=== PATIENT | male | born 1955 | race Caucasian/White ===

== ENCOUNTER 2023-02-02 16:40 | Emergency (ER) | payer SELFPAY ==
[2023-02-02 16:44] VITALS: BMI 35.7
[2023-02-02 16:47] VITALS: BP 172/98; PULSE 63; RESP 16; TEMP 36.6; O2SAT 98
--- NOTE | 2023-02-02 16:48 | CTR_ITS ---
PROCEDURE INFORMATION: Exam: CT Abdomen And Pelvis With Contrast Exam date and time: 02/02/2023 7:15 PM Age: 67 years old Clinical indication: Abdominal pain; Localized; Right lower quadrant (rlq); Additional info: Abd pain TECHNIQUE: Imaging protocol: Computed tomography of the abdomen and pelvis with contrast. Radiation optimization: All CT scans at this facility use at least one of these dose optimization techniques: automated exposure control; mA and/or kV adjustment per patient size (includes targeted exams where dose is matched to clinical indication); or iterative reconstruction. Contrast material: OMNI 350; Contrast volume: 100 ml; Contrast route: INTRAVENOUS (IV); REPORTING DATA: Count of CT and Cardiac NM exams in prior 12 months: This patient has received 0 known CTs and 0 known cardiac nuclear medicine studies in the 12 months prior to the current study. COMPARISON: No relevant prior studies available. RADIATION DOSE METRICS: Total DLP (mGy-cm): 890 FINDINGS: Lungs: Mild areas of bibasilar atelectasis or scarring. Heart: Heart is mildly enlarged. Diaphragm: Very small hiatal hernia. Liver: Few hepatic cystic foci measure up to 1.5 cm. Liver is large and steatotic. Gallbladder and bile ducts: No calcified gallstones or biliary dilation identified. Pancreas: Unremarkable with no suspicious mass. No ductal dilation. Spleen: The spleen is not enlarged. No suspicious enhancing mass is noted. Adrenal glands: Normal. No mass. Kidneys and ureters: Few small left renal cysts. At least mild right hydronephrosis and hydroureter. The right distal ureter contains a 5-6 mm calculus causing this obstruction. Other minute bilateral renal cysts are likely. Question minimal left nephrolithiasis. Stomach and bowel: Mild sigmoid diverticulosis. No small bowel obstruction, abscess or free air. The colon is rather fecal filled. Appendix: Normal appendix. Intraperitoneal space: Unremarkable. No free air. No suspicious fluid collection. Vasculature: No AAA or acute vascular lesion identified. Lymph nodes: No enlarged lymph nodes. Urinary bladder: There is moderate bladder distention. Reproductive: The prostate is quite large. Bones/joints: Advanced spine DJD. Moderate lower lumbar degenerative change. L4 probable hemangioma. Soft tissues: No acute or suspicious finding noted. CT/CT abdomen pelvis w con* [id number] IMPRESSION: 1. Right distal ureteral 6 mm calculus causes [id number] obstruction. 2. Numerous other chronic findings above with large and steatotic liver, large prostate, large bladder, etc. 3. No small bowel obstruction, abscess or free air. COMMENTS: Consistent with the [employer]'s Incidental Findings Committee white paper (J Am Feng [employer]iol 2018): Any incidental renal lesion less than 1 cm or classified as too small to characterize, or any incidental cystic renal lesion characterized as simple-appearing, is likely benign. No follow-up imaging is recommended for these lesions per consensus recommendations based on imaging criteria.
--- NOTE | 2023-02-02 16:59 | ED_ITS ---
HPI - Abdominal Pain 2 General: Chief Complaint: Abdominal Pain Stated Complaint: Abd pain Time Seen by Provider: 02/02/23 16:44 Source: patient and EMS Mode of arrival: EMS Limitations: no limitations History of Present Illness: 67-year-old male states that over the st 3 days has been having right-sided abdominal pain he states that its much worse pain is currently 5 out of 10 is worse with movement improved with rest he had some constipation denies any vomiting or diarrhea denies any fevers. Associated Symptoms: Denies chills, diarrhea, dysuria, fever(s), nausea and vomiting Review of Systems 2 Const: Denies: fever(s) or chills ENMT: Denies: throat pain or dental pain Card: Denies: chest pain Resp: Denies: dyspnea GI: Reports: abdominal pain; Denies: nausea, vomiting or diarrhea : Denies: dysuria Musc: Denies: neck pain or back pain Skin/Breast: Denies: rash Neuro: Denies: headache(s) PFSH ED 2 PFSH: Social History Smoking and tobacco/nicotine status: never used tobacco/nicotine Physical Exam 2 Const: COMMON NORMALS: no acute distress, patient oriented x3 and healthy appearing HENMT: COMMON NORMALS: normocephalic and atraumatic HEAD & SCALP: n ormocephalic and atraumatic Eye: COMMON NORMALS: Equal, round and reactive pupils present and EOMs intact bilaterally PUPIL: Yes Equal, round and reactive pupils present Neck/C-Spine: COMMON NORMALS: full ROM and supple Chest: COMMONS NORMALS: normal inspection of the chest Resp: COMMON NORMALS: normal respiratory effort, No retractions, No use of accessory muscles and clear to auscultation bilaterally AUSCULTATION: clear to auscultation bilaterally Cardio: COMMON NORMALS: regular rate, regular rhythm and No murmurs present (Cardio) RATE: regular rate RHYTHM: regular rhythm GI: COMMON NORMALS: Normal to inspection, nondistended, normoactive bowel sounds present, Soft to palpation and no masses PALPATION: Yes Soft to palpation and Yes Tenderness to palpation present (GI) Details: RLQ Extremity: COMMON NORMALS: normal to inspection and full ROM Neuro: COMMON NORMALS: patient oriented x3, moves all extremities and no focal motor deficits Psych: COMMON NORMALS: mental status grossly normal, Normal thought process present and cooperative THOUGHT PROCESS: Normal thought process present Skin: COMMON NORMALS: no rashes or lesions noted and no wounds GENERAL SKIN EXAM: no rashes or lesions noted Course 2 Vital Signs: Vital signs: Vital Signs Temperature 97.8 F 02/02/23 16:47 Pulse Rate 75 02/02/23 18:49 Respiratory Rate 16 02/02/23 19:49 Blood Pressure 157/94 02/02/23 18:49 Pulse Oximetry 95 02/02/23 19:49 Oxygen Delivery Me thod Room Air 02/02/23 16:47 MDM - Abdominal Pain Medical Decision Making Patient presents here with kidney stone likely causing his pain should it will pass stone on his own he does not UTI stable for discharge she is to follow-up with urologist return if worsening. Medical Records I reviewed the patient's medical records. Lab Data I reviewed the patient's lab results. 02/02/23 17:36 02/02/23 17:36 Labs/Radiology: Radiology Impressions Abdomen/Pelvis CT 02/02/23 16:48 IMPRESSION: 1. Right distal ureteral 6 mm calculus causes [id number] obstruction. 2. Numerous other chronic findings above with large and steatotic liver, large prostate, large bladder, etc. 3. No small bowel obstruction, abscess or free air. COMMENTS: Consistent with the [employer]'s Incidental Findings Committee white paper (J Am Feng Radiol 2018): Any incidental renal lesion less than 1 cm or classified as too small to characterize, or any incidental cystic renal lesion characterized as simple-appearing, is likely benign. No follow-up imaging is recommended for these lesions per consensus recommendations based on imaging criteria. Laboratory Results WBC 9.89 10^3/uL (3.29-11.43) 02/02/23 17:36 RBC 5.41 10^6/uL (3.85-5.65) 02/02/23 17:36 Hgb 16.20 g/dL (11.27-16.99) 02/02/23 17:36 Hct 47.0 % (37-53) 02/02/23 17:36 MCV 86.9 fl (82-101) 02/02/23 17:36 MCH 29.9 pg (27-33) 02/02/23 17:36 MCHC 34.5 g/dL (30-55) 02/02/23 17:36 RDW 12.3 % (12.1-15.1) 02/02/23 17:36 Plt Count 183 10^3/cmm (157-399) 02/02/23 17:36 MPV 10.3 fL (7.4-10.4) 02/02/23 17:36 Neut % (Auto) 79.3 % 02/02/23 17:36 Lymph % (Auto) 10.7 % 02/02/23 17:36 Mathews % (Auto) 8.5 % 02/02/23 17:36 Eos % (Auto) 1.1 % 02/02/23 17:36 Baso % (Auto) 0.2 % 02/02/23 17:36 Neut # (Auto) 7.84 10^3/uL (1.8-7.7) H 02/02/23 17:36 Lymph # (Auto) 1.1 10^3/uL (0.8-4.8) 02/02/23 17:36 Mathews # (Auto) 0.8 10^3/uL (0.2-0.9) 02/02/23 17:36 Eos # (Auto) 0.1 10^3/uL (0.0-0.8) 02/02/23 17:36 Baso # (Auto) 0.0 10^3/uL (0.0-0.1) 02/02/23 17:36 Nucleated RBC % (auto) 0 % 02/02/23 17:36 Nucleated RBCs # 0.0 /100WBC 02/02/23 17:36 Sodium 140 mmol/L (136-145) 02/02/23 17:36 Potassium 3.8 mmol/L (3.5-5.1) 02/02/23 17:36 Chloride 104 mmol/L (98-107) 02/02/23 17:36 Carbon Dioxide 24 mmol/L (22-29) 02/02/23 17:36 Anion Gap 15.8 (5-19) 02/02/23 17:36 BUN 20 mg/dL (8-23) 02/02/23 17:36 Creatinine 1.7 mg/dL (0.7-1.2) H 02/02/23 17:36 GFR Calculation 40.7 mL/min (90-130) L 02/02/23 17:36 Glucose 105 mg/dL (65-115) 02/02/23 17:36 Calculated Osmolality 293 mOsm/kg (285-295) 02/02/23 17:36 Calcium 8.7 mg/dL (8.5-10.5) 02/02/23 17:36 Total Bilirubin 0.6 mg/dL (0.15-1.2) 02/02/23 17:36 AST 16 U/L (0-40) 02/02/23 17:36 ALT 14 U/L (0-41) 02/02/23 17:36 Alkaline Phosphatase 131 U/L (40-130) H 02/02/23 17:36 Total Protein 7.3 g/dL (6.6-8.7) 02/02/23 17:36 Albumin 4.2 g/dL (3.5-5.2) 02/02/23 17:36 Globulin 3.1 g/dL (1.3-4.6) 02/02/23 17:36 Lipase 19 U/L (13-60) 02/02/23 17:36 Urine Color Light yellow (Yellow) 02/02/23 17:36 Urine Appearance Clear (CLEAR) 02/02/23 17:36 Urine pH 7 (5-7) 02/02/23 17:36 Ur Specific [place] 1.015 (1.005-1.030) 02/02/23 17:36 Urine Protein Neg (Negative) 02/02/23 17:36 Urine Glucose (UA) Norm (Normal) 02/02/23 17:36 Urine Ketones 1+ (Negative) H 02/02/23 17:36 Urine Blood Neg (Negative) 02/02/23 17:36 Urine Nitrate Negative (Negative) 02/02/23 17:36 Urine Bilirubin Neg (Negative) 02/02/23 17:36 Urine Urobilinogen Norm mg/dL (Negative) 02/02/23 17:36 Ur Leukocyte Esterase Negative (Negative) 02/02/23 17:36 All radiology interpretation(s) finalized by discharge Discharge Plan Discharge Patient Disposition: Home Clinical Impression: Kidney stone Condition: Stable Prescriptions: New hydrocodone-acetaminophen 5-325 mg tablet 1 tab PO Q6H PRN (Reason: pain) Qty: 14 0RF ondansetron 4 mg tablet,disintegrating 4 mg PO Q6H PRN (Reason: nausea and vomiting) Qty: 14 0RF No Action tamsulosin 0.4 mg capsule 0.4 mg PO DAILY Discharge Orders: Discharge ED (Routine); Ordered 02/02/23 Ordered By: Eva Hall Referrals: Fahad Bynum MD [Primary Care Provider] - Discharge Diet: Advance as tolerated Discharge Activity: Resume usual activity Patient Instructions: Kidney Stones (ED), Opioid Safety Coding Level of Care Code 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
[2023-02-02] MEDS: ondansetron 2 mg/ML SDV 2 mL 4 MG IVP ×2 (17:07→19:55)
[2023-02-02 17:09] VITALS: RESP 18; O2SAT 95
[2023-02-02] MEDS: morphine 4 mg/mL SDV 1 mL IVP ×2 (17:09→19:49)
[2023-02-02 17:42] LABS: Add Urine Microscopic? NO; Charge for UA Resulting for Rev
[2023-02-02 17:47] VITALS: BP 167/88; O2SAT 93
[2023-02-02 17:49] LABS: Basophils % 0.2 %; Bilirubin Urine Neg (Negative); Blood Urine Neg (Negative); Eosinophils # 0.1 10^3/uL (0.0-0.8); Eosinophils % 1.1 %; Glucose Urine UA Norm (Normal); Ketones Urine 1+ (Negative); Lymphocytes # 1.1 10^3/uL (0.8-4.8); Lymphocytes % 10.7 %; Mean Corpuscular HGB Conc 34.5 g/dL (30-55); Mean Corpuscular Hemoglobin 29.9 pg (27-33); Mean Corpuscular Volume 86.9 fl (82-101); Mean Platelet Volume 10.3 fL (7.4-10.4); Monocytes # 0.8 10^3/uL (0.2-0.9); Monocytes % 8.5 %; Neutrophils # 7.84 10^3/uL (1.8-7.7); Neutrophils % 79.3 %; Nitrate Urine Negative (Negative); Nucleated Red Blood Cells % 0 %; Platelet Count 183 10^3/cmm (157-399); Protein Urine Neg (Negative); Red Blood Count 5.41 10^6/uL (3.85-5.65); Red Cell Distribution Width 12.3 % (12.1-15.1); Specific Gravity, Urine 1.015 (1.005-1.030); Urine Appearance Clear (CLEAR); Urine Color Light yellow (Yellow); White Blood Count 9.89 10^3/uL (3.29-11.43); pH Urine 7 (5-7)
[2023-02-02 17:50] LABS: Leukocyte Esterase Urine Negative (Negative); Urobilinogen Urine Norm (Negative)
[2023-02-02 18:13] LABS: Alanine Aminotransferase 14 U/L (0-41); Albumin Level 4.2 g/dL (3.5-5.2); Alkaline Phosphatase 131 U/L (40-130); Aspartate Amino Transferase 16 U/L (0-40); Blood Urea Nitrogen 20 mg/dL (8-23); Calcium 8.7 mg/dL (8.5-10.5); Carbon Dioxide 24 mmol/L (22-29); Chloride 104 mmol/L (98-107); Globulin 3.1 g/dL (1.3-4.6); Glomerular Filtration Rate 40.7 mL/min (90-130); Glucose 105 mg/dL (65-115); Lipase 19 U/L (13-60); Osmolality Calculated 293 mOsm/kg (285-295); Sodium 140 mmol/L (136-145); Total Bilirubin 0.6 mg/dL (0.15-1.2); Total Protein 7.3 g/dL (6.6-8.7)
[2023-02-02 18:18] LABS: Anion Gap 15.8 (5-19); Potassium 3.8 mmol/L (3.5-5.1)
[2023-02-02] MEDS: sodium chloride 0.9% 1,000 ML 999 ML IV (18:31)
[2023-02-02 18:49] VITALS: BP 157/94; PULSE 75; O2SAT 94
[2023-02-02] MEDS: iohexol 350 mg/mL 500 mL Btl (per mL) IV (19:17)
[2023-02-02 19:49] VITALS: RESP 16; O2SAT 95
[2023-02-02 20:25] VITALS: RESP 16
[2023-02-02] MEDS: HYDROmorphone 1 mg/mL INJ 1 mL IVP (20:25)
[2023-02-02] MEDS: ketorolac 30 mg/mL INJ 15 MG IVP (20:25)
[2023-02-02] MEDS: HYDROcodone-acetaminophen 5-325 mg Tablet 1 TAB PO (20:38)
== END 2023-02-02 20:37 | disposition home or self-care (01) ==
PROVIDERS: Nurse Practitioner Family; Emergency Provider Emergency Medicine; PCP Internal Medicine Cardiovascular Disease
DX: N20.0 Calculus of kidney (principal)
CPT/HCPCS: 74177; 80053; 81003; 83690; 85025; 96361; 96374; 96375; 96376; 99285; J1170; J1885; J2270; J2405; J7030